=== PATIENT | female | born 1960 | race Caucasian/White ===

== ENCOUNTER → 2017-02-01 | Outpatient (CLI) | payer OTHER ==
[~2017-02-01] MED LIST: BIOT1TAB5 PO; CHOL100010 PO; CLC100 PO; MOME100A INH; MOME200A INH; RXC5 PO; SPRIN/30 INH
--- NOTE | 2017-02-05 09:02 | PULMONARY FUNCTION TEST ---
INTERPRETATION: Based off ATS criteria. SPIROMETRY: Mild obstructive ventilatory disease. BRONCHODILATOR: No significant response. LUNG VOLUMES: Within normal limits. DIFFUSION CAPACITY: Mildly reduced but corrected based off alveolar volume. INTERPRETATION: Suggests mild emphysema.
== END | disposition home or self-care (01) ==
LOC: C.RC 13:10
PROVIDERS: ATTEND Internal Medicine Pulmonary Disease
DX: C34.90 Malignant neoplasm of unspecified part of unspecified bronchus or lung (principal)

== ENCOUNTER → 2017-02-01 | Outpatient (CLI) | payer OTHER ==
[2017-02-01 14:51] LABS: BASO % 0.4 %; BASO ABS # 0.04 K/uL (0-0.2); COMPLETE YES; EOS % 1.4 %; HEMATOCRIT 43.9 % (37-47); IG% 0.2 %; LYMPH % 37.1 %; LYMPH ABS # 3.34 K/uL (1.2-3.4); MEAN CORPUSCULAR HEMOGLOBIN 30.7 pg (25-34); MONO % 8.1 %; NEUT % 52.8 %; PLATELET COUNT 315 K/uL (130-400); RED BLOOD COUNT 4.72 M/uL (4.2-5.4)
[2017-02-01 15:24] LABS: BLOOD UREA NITROGEN 14 mg/dl (7-18); BUN/CREATININE RATIO 15.6 (10-20); CALCIUM 9.9 mg/dl (8.5-10.1); CARBON DIOXIDE 30 mmol/L (21-32); CHLORIDE 108 mmol/L (98-107); CREATININE 0.88 mg/dl (0.60-1.20); GLUCOSE 84 mg/dl (70-99); POTASSIUM 4.2 mmol/L (3.5-5.1); SODIUM 141 mmol/L (136-145)
== END | disposition home or self-care (01) ==
LOC: C.LAB 13:13
PROVIDERS: ATTEND Surgery
DX: Z01.812 Encounter for preprocedural laboratory examination (principal); C34.11 Malignant neoplasm of upper lobe, right bronchus or lung

== ENCOUNTER 2017-02-12 09:08 | Inpatient (IN) | payer OTHER ==
[2017-02-12] VITALS (8 sets, daily range): BP systolic 100–120; BP diastolic 66–76; PULSE 70–89; TEMP 36.2–37.3; O2SAT 95–100; Ht 154.9 cm; Wt 63.2 kg
[~2017-02-12] VITALS: Ht 154.9 cm; Wt 63.2 kg
[~2017-02-12 09:08] MED LIST changes: -CLC100 PO; +LACTATED RINGER'S 1000ML 1,000 ML IV SCH; -MOME200A INH; -RXC5 PO
[2017-02-12] MEDS ORDERED: FENTANYL CITRATE INJ 50 MCG/1 ML 2 ML VIAL ONE ×2 (10:03→12:19)
[2017-02-12] MEDS ORDERED: MIDAZOLAM HCL 1 MG/ML 2ML VIAL ONE (10:03)
[2017-02-12] MEDS ORDERED: BUPIVACAINE LIPOSOME 1/3% 266 MG/20 ML VIAL INFIL ONE (11:02)
[2017-02-12] MEDS ORDERED: SODIUM CHLORIDE 0.9% PF 50 ML VIAL ONE (11:03)
--- NOTE | 2017-02-12 11:20 | History & Physical Bridge Note ---
H&P Re-Evaluation Bridge Note: I have examined the patient, reviewed the History & Physical and in the interval since the performance of the History & Physical I have noted the following changes of clinical significance: No changes noted
[2017-02-12] MEDS ORDERED: ALBUTEROL HFA INHALER 8.5 GM INH ONE (13:21)
[2017-02-12] MEDS ORDERED: ONDANSETRON INJ 2 MG/ML 2 ML VIAL ONE (13:42)
[2017-02-12] MEDS ORDERED: PHENYLEPHRINE HCL INJ 10 MG/ML VIAL ONE (13:42)
[2017-02-12] MEDS ORDERED: LIDOCAINE HCL 2% 2 ML VIAL (20MG/ML) ONE (13:42)
[2017-02-12] MEDS ORDERED: SUCCINYLCHOLINE 100MG/5ML SYR IV ONE (13:42)
[2017-02-12] MEDS ORDERED: PROPOFOL IV EMULSION 10 MG/ML 20 ML VIAL IV ONE (13:42)
[2017-02-12] MEDS ORDERED: DEXAMETHASONE SOD INJ 4 MG/ML VIAL ONE (13:42)
[2017-02-12] MEDS ORDERED: CISATRACURIUM BESYLATE IV SOLN 2 MG/ML 10 ML VIAL ONE ×2 (13:42→14:05)
[2017-02-12] MEDS ORDERED: MoRPHine SULFATE 2 MG/ML CARP IV PRN (15:30)
[2017-02-12] MEDS ORDERED: ONDANSETRON INJ 2 MG/ML 2 ML VIAL IV PRN ×2 (15:30→15:45)
[2017-02-12] MEDS ORDERED: HYDROmorphone INJ 1 MG/ML SYR ONE (15:38)
[2017-02-12] MEDS ORDERED: ESMOLOL HCL 10 MG/ML 10 ML VIAL ONE (15:40)
[2017-02-12] MEDS ORDERED: NALOXONE HCL 0.4 MG/1 ML VIAL/CARP IV PRN (15:45)
[2017-02-12] MEDS ORDERED: HYDROmorphone INJ 1 MG/ML SYR IV PRN (15:45)
[2017-02-12] MEDS ORDERED: LABETALOL HCL IV 5 MG/ML 20ML IV PRN (15:45)
[2017-02-12] MEDS ORDERED: FLUMAZENIL 0.1 MG/1 ML 10 ML VIAL IV PRN (15:45)
[2017-02-12] MEDS ORDERED: PROMETHAZINE HCL INJ 12.5 MG in SODIUM CHLORIDE 0.9% 50ML 50 ML IV PRN (15:45)
[2017-02-12] MEDS ORDERED: ATROPINE SULFATE 0.1 MG/ML 5ML SYR IV PRN (15:45)
[2017-02-12] MEDS ORDERED: EpHEDrine SULFATE INJ 50 MG/ML AMP IV PRN (15:45)
--- NOTE | 2017-02-12 15:56 | DIAGNOSTIC IMAGING REPORT ---
CHEST ONE VIEW PORTABLE CLINICAL HISTORY: Lung cancer status post surgery COMPARISON STUDY: Outside chest CT dated 08/03/2016 FINDINGS: The heart is normal in size. There are postsurgical changes present on the right. There is a right-sided chest tube. There is a second right-sided catheter which appears to be extrathoracic. There is soft tissue widening in the right paramediastinal region, likely secondary to postsurgical edema. There is slight elevation of the left lung interstitium. There is no lobar consolidation. There are no significant pleural effusions. No pneumothorax is visualized.[ IMPRESSION: 1. Postsurgical changes on the right 2. One of the 2 right-sided chest tubes appears to be extrathoracic 3. No pneumothorax identified 4. Slight elevation of the left lung interstitium Electronically signed by: Nico Acevedo M.D. 02/12/2017 3:54 PM Dictated Date/Time: 02/12/2017 3:52 PM
[2017-02-12 16:39] LABS: ALLEN TEST POS (POS); ARTERIAL BLD GAS O2 SATURATION 92.6 % (90-95); ARTERIAL BLOOD GAS BASE EXCESS -2.8 mEq/L (-9-1.8); ARTERIAL BLOOD GAS HCO3 25 mmol/L (19-24); ARTERIAL BLOOD GAS PO2 74 mm/Hg (80-95); ARTERIAL BLOOD GAS pH 7.28 (7.35-7.45); O2 ADMINISTRATION 2L O2
--- NOTE | 2017-02-12 16:43 | Anesthesiology Progress Note ---
Anesthesia Post Op Note Date & Time Feb 12, 2017 at 16:43 Vital Signs Pain Intensity: 3 Vital Signs Past 12 Hours Date Time Temp Pulse Resp B/P (MAP) Pulse Ox O2 Delivery O2 Flow Rate FiO2 02/12/17 16:40 79 14 97/69 93 Nasal Cannula 2 02/12/17 16:30 36.3 83 18 109/75 93 Nasal Cannula 2 02/12/17 16:20 80 17 103/73 94 Nasal Cannula 2 02/12/17 16:10 85 19 113/77 95 Nasal Cannula 2 02/12/17 16:00 83 17 106/74 94 Nasal Cannula 2 02/12/17 15:50 87 19 106/80 95 Oxymask 10 02/12/17 15:40 96 20 129/76 97 Oxymask 10 02/12/17 15:33 36.1 92 26 129/77 95 Oxymask 10 02/12/17 09:39 36.4 89 20 120/76 (91) 98 Notes Mental Status: alert / awake / arousable, participated in evaluation Pt Amnestic to Procedure: Yes Nausea / Vomiting: adequately controlled Pain: adequately controlled Airway Patency, RR, SpO2: stable & adequate BP & HR: stable & adequate Hydration State: stable & adequate Anesthetic Complications: no major complications apparent
[2017-02-12] MEDS: D5W AND 1/2NSS 1,000 ML IV SCH (18:11)
[2017-02-12] MEDS: ACETAMINOPHEN IV 1,000 MG in EMPTY BAG 0 ML IV SCH (18:12)
[2017-02-12] MEDS: CLINDAMYCIN IV 900 MG in DEXTROSE 5% 100ML 100 ML IV SCH ×2 (18:20→23:42)
[2017-02-12] MEDS: DOCUSATE SODIUM 100 MG CAP PO SCH (20:14)
[2017-02-12] MEDS: KETOROLAC TROMETHAMINE 15 MG/ML VIAL IV. SCH (20:14)
[2017-02-12] MEDS ORDERED: NURSING VERBAL MED ORDER ONE (21:00)
[2017-02-12] MEDS: METOCLOPRAMIDE HCL INJ 5 MG/ML 2 ML VIAL IV. SCH (22:17)
--- NOTE | 2017-02-12 22:41 | OPERATIVE REPORT ---
DATE OF OPERATION: 02/12/2017 PREOPERATIVE DIAGNOSIS: Adenocarcinoma, right upper lobe. POSTOPERATIVE DIAGNOSIS: Same. PROCEDURE: Robotic-assisted thoracoscopic right upper lobectomy with mediastinal lymphadenectomy. SURGEON: Davey Lerma MD FAMILY PRESERVATION OFFICER: MYA Xavier ANESTHESIA: General anesthesia endotracheal intubation using double lumen tube. SPECIFICS OF PROCEDURE AND FINDINGS: This 56-year-old female with a history of cigarette smoking, was found to have an adenocarcinoma of her right upper lobe. She was worked up by Darrin Rosenberg MD from [facility]. She was found to be a candidate for surgery and on 02/12/2017, she underwent an uncomplicated robotic video-assisted thoracoscopic resection of her right upper lobe with mediastinal lymphadenectomy. We lost very little blood and had no air leak at the conclusion of the case. She was extubated in the room. DESCRIPTION OF PROCEDURE: The patient brought to the operating room, laid in supine position. General anesthesia was induced and endotracheal intubation was performed. After placing the patient in the left lateral decubitus position, her right chest was prepped and draped in usual sterile fashion. A timeout was called lung and appropriate antibiotics were given. I then made 5 separate incisions. There was a 5 mm incision made at about the eighth interspace 3 cm from the spine. An 8 mm incision was made with 10 cm away from this more medially in the 8 interspace. Another 12 mm camera port was then made 10 more cm anterior to this and then 10 cm anterior to this, another 8 mm port was placed. Anteriorly about 3 interspaces below just above the diaphragm, a 12 mm vet assistant port were placed. Instruments were then docked and a camera was placed. This was a 0-degree 10 mm scope. The patient had no adhesions. We already had a diagnosis preoperatively. I initially went posteriorly and dissected out the right mainstem bronchus. I dissected out level 4 and level 2 nodes; however, I really did not see a level 7 node. I could see the left mainstem bronchus quite nicely posteriorly. I had excellent exposure. I then took my dissection down into the bronchus intermedius and the mainstem bronchus posteriorly. I then turned my attention anteriorly and completed my pleural dissection anteriorly and identified the apical anterior branch. I removed multiple lymph nodes in the level 10, 11, 2 and 4 areas, although I did not really see one in the level 7 area and it is a bit surprising to me, especially as I visualized the bifurcation quite nicely. I then dissected out anteriorly. I then dissected out in the intralobar fissure got to the artery and then was able to complete the posterior fissure line with the stapler. This really opened things up and after removing the level 11 node at the bifurcation of the right upper lobe bronchus and the bronchus intermedius, I was able to easily get around this. I fired an Endo-JUDITH stapler across this and we could see the arteries and veins quite nicely. There was a large apical anterior drawer trunk and I took this with an Endo-JUDITH stapler. A posterior ascending branch was taken with an Endo-JUDITH stapler. I then turned anteriorly and took the vein. I then did 2 firings of the stapler to complete the anterior fissure. The lobe was then delivered off the field in a specimen bag. I had dissected out multiple level 10, 11 and 12 nodes as well as the level 2 and 4. I irrigated out the chest and really did not see much of a leak. 266 mg of Exparel were mixed in a total of 60 mL of saline and injected from the 2nd-11th interspace intrathoracically under thoracoscopic guidance for intercostal block with liposomal bupivacaine. We really had very little in the way of any bleeding. A chest tube was placed through the anterior port and directed towards the apex. The camera was then removed as were all of the ports and the robot was undocked and removed. A 0 Vicryl was used to close the muscle layers of the two 8 mm ports and the two 12 mm ports. 4-0 Monocryl was used in running subcuticular fashion to approximate the wound edges. She tolerated it very well. She was extubated in the room and transported to the postanesthesia care unit in stable condition. I attest to the content of the Intraoperative Record and any orders documented therein. Any exceptions are noted below. ROSELINE
[2017-02-13] VITALS (8 sets, daily range): BP systolic 100–119; BP diastolic 66–77; PULSE 70–98; TEMP 36.6–37.1; O2SAT 82–100
[2017-02-13] MEDS: ACETAMINOPHEN IV 1,000 MG in EMPTY BAG 0 ML IV SCH (02:11)
[2017-02-13] MEDS: D5W AND 1/2NSS 1,000 ML IV SCH (02:12)
[2017-02-13] MEDS: KETOROLAC TROMETHAMINE 15 MG/ML VIAL IV. SCH (03:55)
[2017-02-13] MEDS ORDERED: MOME200A INH (05:08)
[2017-02-13] MEDS ORDERED: PATIENT'S OWN MOMETASONE FUROATE-FORMOTEROL (DULERA) 200mcg/5mcg per inh INH PRN (05:15)
[2017-02-13] MEDS: METOCLOPRAMIDE HCL INJ 5 MG/ML 2 ML VIAL IV. SCH (06:13)
[2017-02-13 06:52] LABS: COMPLETE YES; HEMATOCRIT 37.4 % (37-47); IG% 0.3 %; LYMPH % 11.6 %; LYMPH ABS # 1.88 K/uL (1.2-3.4); MEAN CELL VOLUME 91.4 fL (80-100); MEAN CORPUSCULAR HEMOGLOBIN 30.1 pg (25-34); MEAN CORPUSCULAR HGB CONC 32.9 g/dl (32-36); MEAN PLATELET VOLUME 9.2 fL (7.4-10.4); MONO % 9.7 %; NEUT % 78.4 %; PLATELET COUNT 262 K/uL (130-400); RED BLOOD COUNT 4.09 M/uL (4.2-5.4); WHITE BLOOD COUNT 16.16 K/uL (4.8-10.8)
[2017-02-13 07:08] LABS: PROTHROMBIN TIME (PATIENT) 10.4 SECONDS (9.0-12.0)
[2017-02-13 07:29] LABS: BUN/CREATININE RATIO 12.3 (10-20); CALCIUM 8.7 mg/dl (8.5-10.1); CREATININE 0.76 mg/dl (0.60-1.20); POTASSIUM 4.4 mmol/L (3.5-5.1)
--- NOTE | 2017-02-13 07:33 | DIAGNOSTIC IMAGING REPORT ---
CHEST ONE VIEW PORTABLE CLINICAL HISTORY: RUL postoperative evaluation COMPARISON STUDY: 02/12/2017 FINDINGS: Interval removal or change in position of one of the 2 right-sided chest tubes. Increased density overlying the right axillary region is no longer apparent. Right lung currently is clear. There is no significant pneumothorax. Improved aeration left hemithorax. Mild residual atelectatic changes bases. IMPRESSION: Improved exam. Interval removal of the potentially extrathoracic right lateral chest tube. No postprocedural pneumothorax. Improved aeration left hemithorax. The above report was generated using voice recognition software. It may contain grammatical, syntax or spelling errors. Electronically signed by: Josiah Carey M.D. 02/13/2017 7:32 AM Dictated Date/Time: 02/13/2017 7:30 AM
--- NOTE | 2017-02-13 07:35 | Anesthesiology Progress Note ---
Anesthesia Post Op Note Date & Time Feb 13, 2017 at 07:35 Vital Signs Pain Intensity: 0.0 Vital Signs Past 12 Hours Date Time Temp Pulse Resp B/P (MAP) Pulse Ox O2 Delivery O2 Flow Rate FiO2 02/13/17 05:00 37.0 74 16 100/66 (77) 97 Nasal Cannula 2.0 02/13/17 02:57 37.0 75 16 108/72 (84) 100 Nasal Cannula 4.0 02/13/17 00:59 36.9 75 16 101/66 (78) 100 Nasal Cannula 4.0 02/12/17 23:30 Nasal Cannula 4.0 02/12/17 22:58 36.8 70 16 107/71 (83) 100 Nasal Cannula 4.0 02/12/17 21:15 37.3 73 18 106/74 (85) 99 Nasal Cannula 4.0 02/12/17 19:57 36.7 74 18 100/66 (77) 99 Nasal Cannula 4.0 Notes Mental Status: alert / awake / arousable, participated in evaluation Pt Amnestic to Procedure: Yes Nausea / Vomiting: adequately controlled Pain: adequately controlled Airway Patency, RR, SpO2: stable & adequate BP & HR: stable & adequate Hydration State: stable & adequate Anesthetic Complications: no major complications apparent
[2017-02-13] MEDS ORDERED: NON-FORMULARY MEDICATION (Biotin 1,000 MCG) PO SCH (09:00)
[2017-02-13] MEDS: TIOTROPIUM BROMIDE 5 PUFF/90 MCG INH INH SCH (09:05)
[2017-02-13] MEDS: DOCUSATE SODIUM 100 MG CAP PO SCH ×2 (09:09→21:00)
[2017-02-13] MEDS: CHOLECALCIFEROL 1000 INTER.UNIT TAB PO SCH (09:10)
[2017-02-13] MEDS: ENOXAPARIN 40 MG/0.4 ML SYR SQ SCH (09:11)
--- NOTE | 2017-02-13 09:18 | SURGERY PROGRESS NOTE ---
DATE: 02/13/2017 SUBJECTIVE: She is 1 day status post a robot-assisted thoracoscopic right upper lobectomy with mediastinal lymphadenectomy. She looks superb. Her pain control has been excellent. She has been walking in the hallway today. PHYSICAL EXAMINATION: She is afebrile. Her vital signs are stable. She is essentially on room air, has had saturations of 94% on room air, although she still was on oxygen, I took her oxygen off. Her chest tube has put out very little overnight. Her lungs are clear. She is eating. I am going to stop her IV. Her sequential compression devices are on when she is in bed. LABORATORY DATA: Her labs are quite stable. Her hemoglobin was 12.3. Her white count is 16,160 which I suspect demargination. Her BUN and creatinine are 9 and 0.76. Her bicarbonate is 24. She did have glucose of 155 and we will check regular blood sugars. IMAGING DATA: Her x-ray looks great. There is no fluid and her lung is completely expanded with no infiltrates. She has no pneumothorax. ASSESSMENT AND PLAN: Postoperative day #1 status post robotic-assisted thoracoscopic right upper lobectomy with mediastinal lymphadenectomy for an early stage adenocarcinoma. I am curious to see what the pathology shows but she has done well with the surgery. She has done very well and in all probability will go home tomorrow. ROSELINE
[2017-02-13] MEDS: OXYCODONE HCL IR 5 MG TAB (IMMEDIATE RELEASE) PO PRN ×3 (13:35→21:03)
[2017-02-13] MEDS ORDERED: NURSING VERBAL MED ORDER ONE (19:30)
[2017-02-14] MEDS: OXYCODONE HCL IR 5 MG TAB (IMMEDIATE RELEASE) PO PRN ×2 (01:33→06:04)
[2017-02-14 07:07] VITALS: BP 115/77; PULSE 87; TEMP 37; O2SAT 91
[2017-02-14] MEDS ORDERED: KETOROLAC TROMETHAMINE 15 MG/ML VIAL IM PRN (07:30)
--- NOTE | 2017-02-14 07:45 | DIAGNOSTIC IMAGING REPORT ---
CHEST ONE VIEW PORTABLE CLINICAL HISTORY: lung resection COMPARISON STUDY: 02/13/2017 FINDINGS: The cardiac and mediastinal contours remain stable. Postsurgical changes are present on the right. The right-sided chest tube remains unchanged in position. There is no pneumothorax. There is no focal pulmonary consolidation. There are improving left basilar atelectatic changes.[ There is minimal residual subcutaneous emphysema on the right. IMPRESSION: No acute findings. No change in the position of the right-sided chest tube. No evidence of pneumothorax. Electronically signed by: Nico Acevedo M.D. 02/14/2017 7:44 AM Dictated Date/Time: 02/14/2017 7:43 AM
[2017-02-14 07:46] VITALS: O2SAT 91
[2017-02-14] MEDS: TIOTROPIUM BROMIDE 5 PUFF/90 MCG INH INH SCH (08:16)
[2017-02-14] MEDS: DOCUSATE SODIUM 100 MG CAP PO SCH (08:16)
[2017-02-14] MEDS: CHOLECALCIFEROL 1000 INTER.UNIT TAB PO SCH (08:17)
[2017-02-14] MEDS: ENOXAPARIN 40 MG/0.4 ML SYR SQ SCH (08:17)
[2017-02-14] MEDS ORDERED: ACETAMINOPHEN IV 1,000 MG in EMPTY BAG 0 ML IV SCH (10:00)
[2017-02-14] MEDS ORDERED: RXC5 PO (11:33)
[2017-02-14] MEDS ORDERED: CLC100 PO (11:34)
--- NOTE | 2017-02-14 11:36 | Discharge Instructions ---
Discharge Instructions Date of Service Feb 14, 2017. Admission Reason for Admission: Right Lung Cancer Discharge Discharge Diagnosis / Problem: Right Lung Cancer Discharge Goals Goal(s): Improve disease control, Learn about illness Activity Recommendations Activity Limitations: as noted below Lifting Limitations: none as noted above . Instructions / Follow-Up Instructions / Follow-Up 1. Do not drive if taking percocet. 2. You may remove dressings in 3 martinez and shower thereafter. No tub baths. 3. Do not fly until cleared to do so by Dr. Lerma. 4. Office appointment with Dr. Lerma in 1 week. Office will call you with date and time of appointment. Go to hospital 1 hour before appointment to have a chest x-ray taken. Current Hospital Diet Patient's current hospital diet: Regular Diet Discharge Diet Recommended Diet: Regular Diet Procedures Procedures Performed: Robotic-assisted Right Video-Assisted Thoracoscopy with Right Upper Lobectomy and Mediastinal Lymphadenectomy Pending Studies Studies pending at discharge: no Medical Emergencies . Who to Call and When: Medical Emergencies: If at any time you feel your situation is an emergency, please call 911 immediately. . Non-Emergent Contact Non-Emergency issues call your: Surgeon Call Non-Emergent contact if: you have a fever, your pain is not controlled, wound has increased drainage . "Provider Documentation" section prepared by Celestine Sherman. . VTE Core Measure Inpt VTE Proph given/why not?: Enoxaparin (Lovenox)SQ, SCD's
--- NOTE | 2017-02-14 12:12 | DIAGNOSTIC IMAGING REPORT ---
CHEST ONE VIEW PORTABLE HISTORY: 56 years-old Female chest tube removal status post chest tube removal. History of prior lung resection. Follow-up study. COMPARISON: Chest radiograph 02/14/2017 at 7:37 AM TECHNIQUE: Portable upright AP view of the chest FINDINGS: Patient is slightly side bent and rotated to the right. Cardiomediastinal and hilar silhouettes are within normal limits. There has been interval removal of the previously seen right-sided chest tube. Postsurgical changes of the right lung are seen. No pneumothorax, pleural effusion or focal airspace consolidation. There is minimal left basilar subsegmental atelectasis. Minimal residual subcutaneous emphysema of the right lateral chest wall. Bones are grossly intact. There is unchanged postsurgical or post traumatic changes of the distal left clavicle. IMPRESSION: 1. Status post right chest tube removal without pneumothorax identified. 2. No acute changes. The above report was generated using voice recognition software. It may contain grammatical, syntax or spelling errors. Electronically signed by: Bay Bustamante M.D. 02/14/2017 12:11 PM Dictated Date/Time: 02/14/2017 12:09 PM
[2017-02-14 13:44] VITALS: BP 115/77; PULSE 87; TEMP 37; O2SAT 91
--- NOTE | 2017-02-14 18:10 | DISCHARGE SUMMARY ---
DISCHARGE DIAGNOSIS: Adenocarcinoma, right upper lobe. HOSPITAL COURSE: Deb Suarez is a 56-year-old smoker who was found to have a mass in her right upper lobe when she was evaluated for a cough. The cough resolved but this mass persisted and a CT scan and then a workup ensued. She was found to have an adenocarcinoma of her right upper lobe. Dr. Darrin Rosenberg from [facility] evaluated her and sent her to see me for consideration for surgery. We set her up for a robot-assisted thoracoscopic surgery and on 02/12/2017 the patient had an uncomplicated robotic surgery. We did a right upper lobe with mediastinal lymphadenectomy. Her margins were negative. I did a lymphadenectomy. We lost very little in the way of blood. She did very well on the floor for the first night, although complained of some pain on the 2nd postop day. With removal of her chest tube on postop day #2, her pain improved. She was ambulating in the hallway, tolerating a regular diet. We did send her home on narcotics. She is having more pain than we normally see. Her incisions are clean. Her x-rays looked good. I will see her back in the office next week to go over her pathology report.
== END 2017-02-14 14:10 | disposition home or self-care (01) | DRG 165 ==
LOC: C.ACU 09:08 → C.MSW 15:27 → ENRESERV 16:02
PROVIDERS: ADMIT Surgery; ATTEND Surgery
PROC: 0BTC0ZZ Resection of Right Upper Lung Lobe, Open Approach (ICD-10-PCS; principal; 2017-02-12 11:00)
DX: C34.11 Malignant neoplasm of upper lobe, right bronchus or lung (principal); F17.200 Nicotine dependence, unspecified, uncomplicated; Z85.828 Personal history of other malignant neoplasm of skin; Z80.9 Family history of malignant neoplasm, unspecified